=== PATIENT | female | born 1965 | race Caucasian/White ===

== ENCOUNTER 2017-01-11 10:28 | Emergency (ER) | payer OTHER ==
--- NOTE | ~2017-01-11 | EKG ---
PATIENT: ALEM LOONEY UNIT #: [id number] Ventricular Rate: 79 BPM Atrial Rate: 79 BPM P-R Interval: 144 ms QRS Duration: 86 ms Q-T Interval: 388 ms QTC Calculation(Bezet): [address] Flat: 53 degrees Calculated [address] Flat: 33 degrees Calculated T [address] Flat: 60 degrees Diagnosis Line: Normal sinus rhythm Diagnosis Line: Nonspecific T wave abnormality Diagnosis Line: Abnormal ECG Diagnosis Line: When compared with ECG of 07-NOV-2014 17:15, Diagnosis Line: No significant change was found Diagnosis Line: Confirmed by RUFINO HANNA MD ([id number]) on Diagnosis Line: 01/11/2017 10:44:11 PM INTERPRETING MD: LISANDRA
--- NOTE | ~2017-01-11 | CR72 ---
[facility] A Service of [facility] RADIOLOGY TEXT RESULTS PATIENT: ALEM LOONEY LOCATION: [facility] : 65 UNIT #: [id number] AGE: [address]: Diana Cintron MD SEX: F ORDER DR: [id number] [facility] [address] [place], [place] [address] [id number] MR#: [id number] Acc #: [id number] NAME: ALEM LOONEY : 1965 SEX: F STUDY DATE/TIME: 01/11/2017 11:00 UNIT: [facility] ROOM: STUDY DESCRIPTION: CR Chest Single View Portable Attending Physician: Diana Cintron M.D. Ordering Physician: Diana Cintron M.D. Primary Care Physician: Chris New Jr., A.P.R.N. MEDICAL IMAGING REPORT This report is preliminary unless electronic signature is present EXAM Portable chest 01/11/2017. HISTORY Shortness of breath chest pain and back pain beginning last night. Benign essential hypertension, COPD. FINDINGS A single AP portable view of the chest shows both lungs to be clear. The heart is normal in size. The mediastinal contour is normal. No significant bone abnormalities are seen. IMPRESSION Normal portable chest. Dictated by... Moreno Anderson M.D. THIS IS AN ELECTRONICALLY VERIFIED REPORT Moreno Anderson M.D. at 01/12/2017 9:23 AM KRT/gz TD: 01/11/2017 13:51 JOB #: [id number] MEDICAL IMAGING REPORT Page 1 of 1 COPY
[~2017-01-11 10:28] MED LIST: ABILIFY10 MG PO; ADVAIR; ADVAIR 1001 DISK W/D PO; ALBUTEROL17 GM INH; AMOXICILLIN500 M1 PO; ATARAX PO; BENADRYL; BUSPIRONE PO; CIPRODEX OTIC7.5 ML OT; CLARINEX5 MG; FLONASE16 GM; GABAPENTIN600 MG PO; GEODAN; IBUPROFEN PO; IBUPROFEN800 MG PO; KLONOPIN PO; METFORMIN PO; NEURONTIN PO; PAXIL; SEROQUEL; SINGULAIR PO; SYNTHROID PO; TEMAZEPAM; TOPAMAX; TRAMADOL HCL50 M1 PO; TRAZODONE PO; ZANTAC; ZYRTEC PO
[2017-01-11 11:06] LABS: BASOPHIL# 0.1 X10e3 (0-0.3); BASOPHIL% 1.2 % (0-2.5); EOSINOPHIL# 0.2 X10e3 (0-0.7); HEMATOCRIT 39.9 % (35.0-45.0); HEMOGLOBIN 13.3 gm/dL (12.0-16.0); LYMPHOCYTE# 3.6 X10e3 (1.0-3.5); MEAN CELL VOLUME 89.4 FL (83-96); MEAN CORPUSCULAR HEMOGLOBIN 29.7 PG (28-34); MEAN CORPUSCULAR HGB CONC 33.2 g/dL (30-36); MEAN PLATELET VOLUME 8.6 FL (6.5-11.5); MONOCYTE# 0.6 X10e3 (0-1.0); MONOCYTE% 5.2 % (3.0-12.0); NEUTROPHIL% 60.6 % (40-75); PLATELET COUNT 237 X10e3 (140-420); RED BLOOD COUNT 4.47 X10e (3.90-5.30); RED CELL DISTRIBUTION WIDTH 12.9 % (11.0-15.5); WHITE BLOOD COUNT 11.6 X10e3 (4.0-10.5)
[2017-01-11 11:13] LABS: DIFF IND NO
[2017-01-11 11:19] LABS: POC - TROPONIN <0.05 ng/mL (<=0.05)
[2017-01-11 11:21] LABS: PARTIAL THROMBOPLASTIN TIME 25.7 SECONDS (23.5-31.3); PROTHROMBIN TIME (PATIENT) 10.5 SECONDS (10.0-11.7)
[2017-01-11 11:40] LABS: ALBUMIN SERUM 3.9 g/dL (3.5-5.0); BILIRUBIN, DIRECT 0.2 mg/dL (0.0-0.2); BILIRUBIN,INDIRECT 0.3 mg/dL (0.0-0.9); BILIRUBIN,TOTAL 0.5 mg/dL (0.2-2.0); BUN/CREATININE RATIO 18.75; CALCIUM SERUM 9.2 mg/dL (8.4-10.2); CREATININE SERUM 0.8 mg/dL (0.6-1.4); GLOM FILT RATE Estimated 85.4 mL/min (>60); POTASSIUM 4.3 mmol/L (3.5-5.1)
[2017-01-11 13:42] LABS: POC - TROPONIN <0.05 ng/mL (<=0.05)
== END 2017-01-11 14:41 | disposition home or self-care (01) ==
LOC: CED 10:28
PROVIDERS: Student in an Organized Health Care Education/Training Program
DX: J44.1 Chronic obstructive pulmonary disease with (acute) exacerbation (principal); M54.9 Dorsalgia, unspecified; E11.9 Type 2 diabetes mellitus without complications; F17.200 Nicotine dependence, unspecified, uncomplicated; I10 Essential (primary) hypertension; Z90.49 Acquired absence of other specified parts of digestive tract; Z98.51 Tubal ligation status; Z98.890 Other specified postprocedural states; Z88.2 Allergy status to sulfonamides
CPT/HCPCS: 36415; 71010; 80048; 80076; 82553; 83880; 84484; 85025; 85610; 85730; 93005; 94640; 96374; 99285; J2930